=== PATIENT | female | born 1950 | race Caucasian/White ===

== ENCOUNTER 2017-08-14 13:03 | Outpatient (CLI) | payer MEDICARE, BC | END 2017-08-14 13:04 | disposition home or self-care (01) | LOC: ULT 13:03 | PROVIDERS: ATTEND Family Medicine | DX: R01.1 Cardiac murmur, unspecified (principal) | CPT/HCPCS: 93306 ==

== ENCOUNTER 2017-08-15 09:57 | Outpatient (CLI) | payer MEDICARE, BC ==
--- NOTE | 2017-08-15 13:27 | CT ---
CT PULMONARY LUNG SCAN NONCONTRAST: Date: 08-15-17 History: Baseline lung screening. Tobacco abuse x 21 years. FINDINGS: At the right posterior medial lung base, a bilobed noncalcified subpleural nodule includes components that are 0.6 and 0.5 cm greatest diameters. Lungs are otherwise hyperinflated with scattered areas o f mild scarring. No lobar consolidation, pleural fluid, or pneumothorax are visible. Lack of contrast limits evaluation of the mediastinum. There is calcification in the arterial structu res. Within the partially visualized upper abdomen, gas is apparent within the biliary system of the left liver lobe. IMPRESSION: 1. Bilobed noncalcified nodule at the right posterior medial lung base measuring up to 0.6 cm diamete r. Lung rads category 3 - positive. Indeterminate finding. Recommend low dose CT imaging follow up in 3 months to evaluate for stability. 2. COPD. 3. Atherosclerosis. POS: [facility]
== END 2017-08-15 09:58 | disposition home or self-care (01) ==
LOC: CT 09:57
PROVIDERS: ATTEND Family Medicine
DX: F17.210 Nicotine dependence, cigarettes, uncomplicated (principal); J44.9 Chronic obstructive pulmonary disease, unspecified; I70.90 Unspecified atherosclerosis; R91.1 Solitary pulmonary nodule
CPT/HCPCS: G0297

== ENCOUNTER 2017-11-16 09:33 | Emergency (ER) | payer MEDICARE, BC ==
--- NOTE | 2017-11-16 11:48 | ULT ---
LEFT LOWER EXTREMITY VENOUS DOPPLER WITH SPECTRAL ANALYSIS AND COLOR FLOW EVALUATION: 11/16/2017 HISTORY: Left high pain and swelling, with onset this morning, after waking up. Redness to the left lower ext remity. History of varicose veins, left lower extremity. FINDINGS: Galvin-scale, color-flow, Doppler evaluation, and spectral analysis of the left lower extremity venous structures is performed with 2D imaging. The left lower extremity common femoral, superficial femora l, popliteal, posterior tibial, most proximal greater saphenous, and profunda femoral veins are image d. There is normal lumen compressibility, flow, and augmentation in the visualized deep venous structure s of the left lower extremity. There is a dilated tubular structures filled with echogenic material seen within the medial aspect of the lower left thigh, as well as the medial aspect of the left upper calf. Color-flow evaluation do es not demonstrate flow within this structure. This is most compatible with a thrombosed superficial vein in the left lower extremity. The research physicist does note redness in this region. Findings could be related to thrombophlebitis. IMPRESSION: 1. No evidence of a deep venous thrombosis involving the visualized deep venous structures of the le ft lower extremity. 2. Thrombosed superficial vein, left lower extremity, within the medial aspect of the lower left thi gh and the upper calf. There is overlying redness in this region according to the report by the ultr asonographer, and findings may be related to superficial thrombophlebitis. POS: [facility]
== END 2017-11-16 12:08 | disposition home or self-care (01) ==
LOC: SCSER 09:33
DX: I80.02 Phlebitis and thrombophlebitis of superficial vessels of left lower extremity (principal); E03.9 Hypothyroidism, unspecified; F17.210 Nicotine dependence, cigarettes, uncomplicated

== ENCOUNTER 2018-02-15 08:15 | Outpatient (CLI) | payer MEDICARE, BC | END 2018-02-15 08:16 | disposition home or self-care (01) | LOC: BICMAMMO 08:15 | PROVIDERS: ATTEND Family Medicine | DX: Z12.31 Encounter for screening mammogram for malignant neoplasm of breast (principal); R92.1 Mammographic calcification found on diagnostic imaging of breast; Z80.3 Family history of malignant neoplasm of breast | CPT/HCPCS: 77063; 77067 ==

== ENCOUNTER 2018-05-01 07:39 | Outpatient (CLI) | payer MEDICARE, BC ==
--- NOTE | 2018-05-01 09:26 | CT ---
CT OF THE CHEST WITHOUT CONTRAST WITH LOW DOSE CANCER SCREENING PROTOCOL: Comparison: 08-15-17 History: Smoking history. Previously seen nodule in the right lower lobe. Technique: Multiple contiguous axial images were obtained in a CT of the chest without contrast per l ow dose cancer screening protocol. Coronal reformats were performed. FINDINGS: Emphysematous changes are seen in the lungs. There is an area of nodularity in the right lower lobe. This is less prominent than on the prior examination. This no longer demonstrates a bilobed appearanc e. This nodule measures 7 mm in greatest dimension and could represent scarring. No other pulmonary n odules are seen. No pneumothorax or pleural effusions are seen. The heart is normal in size. Calcifications are seen in the coronary arteries and aorta. No hilar or mediastinal lymphadenopathy are appreciated on this noncontrast examination. There is stable air in the biliary tree from gastroenterologic procedure. The other visualized subdia phragmatic structures are unremarkable. Mild degenerative changes are seen in the spine. The chest wa ll soft tissues are unremarkable. IMPRESSION: Decreased sized of right lower lobe pulmonary nodule. This nodule is likely benign. Lung RADS categor y 3. A follow up CT in one year is recommended to ensure continued stability and/or evaluate for reso lution. POS: [facility]
== END 2018-05-01 07:40 | disposition home or self-care (01) ==
LOC: CT 07:39
PROVIDERS: ATTEND Family Medicine
DX: F17.210 Nicotine dependence, cigarettes, uncomplicated (principal); J44.9 Chronic obstructive pulmonary disease, unspecified; R91.8 Other nonspecific abnormal finding of lung field; R91.1 Solitary pulmonary nodule
CPT/HCPCS: G0297

== ENCOUNTER 2018-08-01 13:05 | Outpatient (CLI) | payer MEDICARE, BC ==
--- NOTE | 2018-08-01 15:38 | BD ---
DEXA BONE DENSITY STUDY: Date: 08/01/18 HISTORY: 68-year-old postmenopausal female for screening for osteoporosis. COMPARISON: None. FINDINGS: Femurs: BMD (g/cm2) Left Femoral Neck: 0.731 T-Score: -1.1 Total Proximal Left Femur: 0.915 T-Score: -0.2 Right Femoral Neck: 0.694 T-Score: -1.4 Total Proximal Right Femur: 0.902 T-Score: -0.3 IMPRESSION: Osteopenia. This patient has a 10 year WHO fracture risk of a major osteoporotic fracture of 15% and a hip fracture of 2.8%. POS: [facility]
== END 2018-08-01 13:06 | disposition home or self-care (01) ==
LOC: BICMAMMO 13:05
PROVIDERS: ATTEND Family Medicine
DX: Z13.820 Encounter for screening for osteoporosis (principal); M85.851 Other specified disorders of bone density and structure, right thigh; M85.852 Other specified disorders of bone density and structure, left thigh; Z78.0 Asymptomatic menopausal state
CPT/HCPCS: 77080

== ENCOUNTER 2019-09-03 09:22 | Outpatient (CLI) | payer MEDICARE, BC ==
--- NOTE | 2019-09-03 11:36 | MMO ---
Bilateral MAMMO Bilat Screen [facility]. CLINICAL HISTORY: Patient is 69 years old and is seen for screening. The patient has the following family history of breast cancer: sister, at age 39, malignant (generic). The patient has no personal history of cancer. VIEWS: The views performed were: bilateral craniocaudal with tomosynthesis and bilateral mediolateral oblique with tomosynthesis. FILMS COMPARED: The present examination has been compared to prior imaging studies performed at [facility] on 02/17/2012 and 02/15/2018, and at [facility] on 11/26/2008 and 12/31/2009. This study has been interpreted with the assistance of computer-aided detection. MAMMOGRAM FINDINGS: There are scattered fibroglandular densities. Benign calcifications are noted bilaterally. There are no suspicious masses, suspicious calcifications, or new areas of architectural distortion. IMPRESSION: THERE IS NO MAMMOGRAPHIC EVIDENCE OF MALIGNANCY. A ROUTINE FOLLOW-UP MAMMOGRAM IN 1 YEAR IS RECOMMENDED. THE RESULTS OF THIS EXAM WERE SENT TO THE PATIENT. ACR BI-RADS Category 2 - Benign finding MAMMOGRAPHY NOTE: 1. A negative mammogram report should not delay a biopsy if a dominant of clinically suspicious mass is present. 2. Approximately 10% to 15% of breast cancers are not detected by mammography. 3. Adenosis and dense breasts may obscure an underlying neoplasm. Reported by: MADELEINE RUIZ MD Electonically Signed: [id number]
== END 2019-09-03 09:23 | disposition home or self-care (01) ==
LOC: BICMAMMO 09:22
PROVIDERS: ATTEND Family Medicine
DX: Z12.31 Encounter for screening mammogram for malignant neoplasm of breast (principal); Z80.3 Family history of malignant neoplasm of breast
CPT/HCPCS: 77063; 77067

== ENCOUNTER 2019-10-08 07:31 | Outpatient (CLI) | payer MEDICARE, BC ==
--- NOTE | 2019-10-08 08:59 | CT ---
CT PULMONARY LUNG SCAN: HISTORY: Current smoker with a 30-year history of smoking half a pack a day, still currently smoking but down to only 4 cigarettes a day. COMPARISON: A 05/01/2018 examination. FINDINGS: The lungs show some evidence for air trapping. Slightly mosaic lung pattern is seen. No infiltrativ e process. The right lower lobe pulmonary nodule seen on axial image 187 is stable. It is somewhat oblong in shape measured in 5ransverse dimension and compared to the prior examination a similar kayce urement of approximately 6 mm was obtained. No new nodules. Coronary calcifications are noted. No significant mediastinal adenopathy. Gallbladder has been burton flakita. IMPRESSION: 1. Lung RADS category 2, benign appearance for behavior. Stable appearance of the right lower lobe pulmonary nodule would indicate a low likelihood of malignancy. Annual screening followup is recomm ended. 2. Lung RADS category S. This second category is given for the presence of coronary calcifications. POS: [facility]
== END 2019-10-08 07:32 | disposition home or self-care (01) ==
LOC: CT 07:31
PROVIDERS: ATTEND Family Medicine
DX: Z12.2 Encounter for screening for malignant neoplasm of respiratory organs (principal); F17.210 Nicotine dependence, cigarettes, uncomplicated; R91.1 Solitary pulmonary nodule; I25.10 Atherosclerotic heart disease of native coronary artery without angina pectoris
CPT/HCPCS: G0297

== ENCOUNTER 2020-09-23 09:12 | Outpatient (CLI) | payer MEDICARE, BC ==
--- NOTE | 2020-09-23 10:11 | MMO ---
Bilateral MAMMO Bilat Screen [facility]. CLINICAL HISTORY: Patient is 70 years old and is seen for screening. The patient has the following family history of breast cancer: sister, at age 39, malignant (generic). The patient has no personal history of cancer. VIEWS: The views performed were: bilateral craniocaudal with tomosynthesis and bilateral mediolateral oblique with tomosynthesis. FILMS COMPARED: The present examination has been compared to prior imaging studies performed at [facility] on 02/17/2012, 02/15/2018 and 09/03/2019, and at [facility] on 12/31/2009. This study has been interpreted with the assistance of computer-aided detection. MAMMOGRAM FINDINGS: There are scattered fibroglandular densities. There are benign appearing calcifications seen in both breasts. There are no suspicious masses, suspicious calcifications, or new areas of architectural distortion. IMPRESSION: THERE IS NO MAMMOGRAPHIC EVIDENCE OF MALIGNANCY. A ROUTINE FOLLOW-UP MAMMOGRAM IN 1 YEAR IS RECOMMENDED. THE RESULTS OF THIS EXAM WERE SENT TO THE PATIENT. ACR BI-RADS Category 2 - Benign finding MAMMOGRAPHY NOTE: 1. A negative mammogram report should not delay a biopsy if a dominant of clinically suspicious mass is present. 2. Approximately 10% to 15% of breast cancers are not detected by mammography. 3. Adenosis and dense breasts may obscure an underlying neoplasm. Reported by: MADELEINE RUIZ MD Electonically Signed: [id number]
== END 2020-09-23 09:13 | disposition home or self-care (01) ==
LOC: BICMAMMO 09:12
PROVIDERS: ATTEND Family Medicine
DX: Z12.31 Encounter for screening mammogram for malignant neoplasm of breast (principal); Z80.3 Family history of malignant neoplasm of breast
CPT/HCPCS: 77063; 77067

== ENCOUNTER 2021-02-02 13:29 | Outpatient (CLI) | payer MEDICARE, BC | END 2021-02-02 13:30 | disposition home or self-care (01) | LOC: BICCT 13:29 | PROVIDERS: ATTEND Family Medicine | DX: Z12.2 Encounter for screening for malignant neoplasm of respiratory organs (principal); F17.210 Nicotine dependence, cigarettes, uncomplicated; J44.9 Chronic obstructive pulmonary disease, unspecified; R91.1 Solitary pulmonary nodule; E04.9 Nontoxic goiter, unspecified; I25.10 Atherosclerotic heart disease of native coronary artery without angina pectoris | CPT/HCPCS: 71271 ==

== ENCOUNTER 2021-10-21 13:56 | Inpatient (IN) | payer MEDICARE, BC ==
[~2021-10-21 13:56] MED LIST: Iopamidol-370 76% 500 ML 1 ML ONE
[2021-10-21 14:36] LABS: Hemoglobin 15.5 g/dL (12.0-16.0); Mean Corpuscular HGB CONC 33.9 g/dL (32.0-36.0); Mean Corpuscular Hemoglobin 32.6 pg (27.0-31.0); Mean Corpuscular Volume 96.2 fL (78.0-98.0); Mean Platelet Volume 8.9 fL (7.4-10.4); Platelet Count 184 thou/uL (130-400); RBC Distribution Width 12.7 % (11.5-14.5); Red Blood Cell (RBC) Count 4.75 mill/uL (4.20-5.40); White Blood Cell (WBC) Count 16.8 thou/uL (4.8-10.8)
[2021-10-21 14:51] LABS: ALT (SGPT) 182 U/L (8-55); AST (SGOT) 257 U/L (5-34); Albumin 3.9 g/dL (3.4-4.8); Alkaline Phosphatase 394 U/L (40-110); Anion Gap 12 mmol/L (10-20); BUN (Urea Nitrogen) 9 mg/dL (9.8-20.1); Bilirubin, Total 3.8 mg/dL (0.2-1.2); Calc. Creatinine Clearance 0 mL/min (70-130); Calcium 9.2 mg/dL (7.8-10.44); Carbon Dioxide 26 mmol/L (23-31); Chloride 101 mmol/L (98-107); Globulin 3.5 g/dL (2.4-3.5); Glucose 165 mg/dL (83-110); Lipase 14 U/L (8-78); Protein, Total 7.4 g/dL (5.8-8.1); Sodium 135 mmol/L (136-145)
[2021-10-21 14:53] LABS: Band 20 % (5-11); Lymphocytes 3 % (21-51); MDiff Complete? YES; Monocytes 1 % (0-10); Neutrophil 76 % (42-75); Platelet Morphology Comment Appears Adequate; Polychromasia SLIGHT = 2-3 cells (100X) (0-2/hpf)
[2021-10-21] MEDS ORDERED: Morphine 4 MG/ML VIAL ONE (15:01)
[2021-10-21] MEDS ORDERED: Ondansetron PF 4 MG/2 ML Vial ONE (15:01)
[2021-10-21] MEDS ORDERED: Ondansetron PF 4 MG/2 ML Vial IVP SCH (15:15)
[2021-10-21] MEDS ORDERED: Morphine 4 MG/ML VIAL SLOW IVP SCH (15:15)
[2021-10-21] MEDS ORDERED: Piperacillin/Tazobactam 3.375 GM VIAL ONE (15:48)
[2021-10-21 16:23] LABS: Bilirubin Negative (Negative); Blood, Urine Negative (Negative); Clarity Clear (Clear); Glucose, Urine (Dipstick) Normal (Negative); Ketone, Urine Negative (Negative); Leukocyte Negative Leu/uL (Negative); Nitrite Negative (Negative); Protein, Urine (Dipstick) Negative (Neg-Trace)
[2021-10-21 16:24] LABS: Specific Gravity, Urine 1.053 (1.002-1.036)
[2021-10-21] MEDS ORDERED: Acetaminophen 500 MG TAB ONE (16:56)
[2021-10-21] MEDS ORDERED: Ondansetron PF 4 MG/2 ML Vial IVP PRN (17:15)
[2021-10-21] MEDS ORDERED: Acetaminophen 325 MG TAB PO PRN (17:15)
[2021-10-21] MEDS ORDERED: Ondansetron ODT 4 MG TAB SL PRN (17:15)
[2021-10-21] MEDS ORDERED: hydrALAZINE 20 MG/ML VIAL SLOW IVP PRN (18:51)
[2021-10-21] MEDS: Sodium Chloride 0.9% 1,000 ML IV SCH (20:41)
[2021-10-21] MEDS: Piperacillin/Tazobactam 3.375 GM in Sodium Chloride 0.9% 100 ML IVPB SCH (20:42)
[2021-10-21] MEDS: Morphine 4 MG/ML VIAL SLOW IVP PRN (20:43)
[2021-10-21 20:53] VITALS: BMI 28.2
[2021-10-21] MEDS ORDERED: Nicotine 14 MG PATCH TD PRN (23:29)
[2021-10-22 00:53] LABS: SARS-CoV-2 NAA Rapid Test Not Detected (NotDetected)
[2021-10-22] MEDS: Piperacillin/Tazobactam 3.375 GM in Sodium Chloride 0.9% 100 ML IVPB SCH ×3 (04:23→19:56)
[2021-10-22] MEDS: Sodium Chloride 0.9% 1,000 ML IV SCH (05:46)
[2021-10-22] MEDS: Morphine 4 MG/ML VIAL SLOW IVP PRN ×3 (05:47→19:55)
[2021-10-22] MEDS ORDERED: Indomethacin 50 MG SUPP ONE (06:42)
[2021-10-22] MEDS ORDERED: Iothalamate Meglumine 60% 50 ML VIAL FS ONE ×2 (06:46→10:40)
[2021-10-22] MEDS ORDERED: Midazolam HCl 2 mg/2 ml Vial ONE (09:47)
[2021-10-22] MEDS ORDERED: Fentanyl 250 MCG/5 ML VIAL ONE (09:48)
[2021-10-22] MEDS ORDERED: GLYCOPYRROLATE/PF 0.2 MG/ML VIAL ONE (10:00)
[2021-10-22] MEDS ORDERED: Lidocaine 1% PF 5 ML VIAL ONE (10:00)
[2021-10-22] MEDS ORDERED: Rocuronium Bromide 10 MG/ML (10ML VIAL) ONE (10:00)
[2021-10-22] MEDS ORDERED: Ondansetron PF 4 MG/2 ML Vial ONE (10:00)
[2021-10-22] MEDS ORDERED: Dexamethasone 20 MG/5 ML VIAL ONE (10:00)
[2021-10-22] MEDS ORDERED: PROPOFOL 200 MG/20 ML VIAL ONE (10:00)
[2021-10-22] MEDS ORDERED: Ondansetron HCl/PF 4 MG/2 ML Vial IVP PRN (11:28)
[2021-10-22] MEDS ORDERED: Promethazine HCl 25 MG/ML VIAL IVPB PRN (11:28)
[2021-10-22] MEDS ORDERED: Promethazine HCl 25 MG/ML VIAL IM PRN (11:28)
[2021-10-23] MEDS: Morphine 4 MG/ML VIAL SLOW IVP PRN ×6 (00:01→21:05)
[2021-10-23] MEDS: Piperacillin/Tazobactam 3.375 GM in Sodium Chloride 0.9% 100 ML IVPB SCH ×3 (04:02→20:53)
[2021-10-23 04:57] LABS: #Monocytes 0.4 thou/uL (0.11-0.59); #Neutrophils 10.7 thou/uL (1.40-6.50); %Basophils 0.2 % (0.0-1.0); %Eosinophils 0.1 % (0.0-10.0); %Lymphocytes 8.5 % (21.0-51.0); %Monocytes 3.5 % (0.0-10.0); %Neutrophils 87.8 % (42.0-75.0); Hemoglobin 13.6 g/dL (12.0-16.0); Mean Corpuscular HGB CONC 31.9 g/dL (32.0-36.0); Mean Corpuscular Hemoglobin 31.8 pg (27.0-31.0); Mean Corpuscular Volume 99.5 fL (78.0-98.0); Mean Platelet Volume 9.6 fL (7.4-10.4); Platelet Count 170 thou/uL (130-400); RBC Distribution Width 12.8 % (11.5-14.5); Red Blood Cell (RBC) Count 4.28 mill/uL (4.20-5.40); White Blood Cell (WBC) Count 12.2 thou/uL (4.8-10.8)
[2021-10-23 05:16] LABS: ALT (SGPT) 94 U/L (8-55); AST (SGOT) 48 U/L (5-34); Albumin 3.7 g/dL (3.4-4.8); Alkaline Phosphatase 252 U/L (40-110); Bilirubin, Direct 1.8 mg/dL (0.1-0.3); Bilirubin, Total 2.5 mg/dL (0.2-1.2); Protein, Total 6.9 g/dL (5.8-8.1)
[2021-10-23 05:18] LABS: ALT (SGPT) 93 U/L (8-55); AST (SGOT) 49 U/L (5-34); Albumin 3.7 g/dL (3.4-4.8); Alkaline Phosphatase 252 U/L (40-110); Anion Gap 13 mmol/L (10-20); BUN (Urea Nitrogen) 17 mg/dL (9.8-20.1); Bilirubin, Total 2.6 mg/dL (0.2-1.2); Calc. Creatinine Clearance 75 mL/min (70-130); Calcium 9.2 mg/dL (7.8-10.44); Carbon Dioxide 25 mmol/L (23-31); Chloride 105 mmol/L (98-107); Globulin 3.2 g/dL (2.4-3.5); Glucose 144 mg/dL (83-110); Potassium 4.4 mmol/L (3.5-5.1); Protein, Total 6.9 g/dL (5.8-8.1); Sodium 139 mmol/L (136-145)
[2021-10-23] MEDS: Methimazole 5 MG TAB PO SCH (05:55)
[2021-10-23] MEDS ORDERED: Methimazole 5 MG TAB PO SCH (09:00)
[2021-10-23] MEDS: Ursodiol 300 MG CAP PO SCH (16:48)
[2021-10-24] MEDS: Temazepam 15 MG CAP PO SCH (00:07)
[2021-10-24 05:13] LABS: #Basophils 0.1 thou/uL (0.0-0.2); #Eosinphils 0.2 thou/uL (0.0-0.7); #Lymphocytes 2.5 thou/uL (1.20-3.40); #Monocytes 0.5 thou/uL (0.11-0.59); #Neutrophils 5.8 thou/uL (1.40-6.50); %Basophils 0.6 % (0.0-1.0); %Eosinophils 2.5 % (0.0-10.0); %Lymphocytes 27.6 % (21.0-51.0); %Monocytes 5.7 % (0.0-10.0); %Neutrophils 63.6 % (42.0-75.0); Hemoglobin 12.5 g/dL (12.0-16.0); Mean Corpuscular HGB CONC 32.1 g/dL (32.0-36.0); Mean Corpuscular Hemoglobin 31.9 pg (27.0-31.0); Mean Corpuscular Volume 99.5 fL (78.0-98.0); Mean Platelet Volume 9.4 fL (7.4-10.4); Platelet Count 174 thou/uL (130-400); RBC Distribution Width 12.8 % (11.5-14.5); Red Blood Cell (RBC) Count 3.92 mill/uL (4.20-5.40); White Blood Cell (WBC) Count 9.2 thou/uL (4.8-10.8)
[2021-10-24] MEDS: Methimazole 5 MG TAB PO SCH (05:28)
[2021-10-24] MEDS: Piperacillin/Tazobactam 3.375 GM in Sodium Chloride 0.9% 100 ML IVPB SCH ×3 (05:28→20:37)
[2021-10-24 05:31] LABS: ALT (SGPT) 65 U/L (8-55); AST (SGOT) 34 U/L (5-34); Albumin 3.3 g/dL (3.4-4.8); Alkaline Phosphatase 206 U/L (40-110); Anion Gap 12 mmol/L (10-20); BUN (Urea Nitrogen) 11 mg/dL (9.8-20.1); Bilirubin, Total 1.8 mg/dL (0.2-1.2); Calc. Creatinine Clearance 84 mL/min (70-130); Calcium 8.9 mg/dL (7.8-10.44); Carbon Dioxide 28 mmol/L (23-31); Chloride 109 mmol/L (98-107); Globulin 2.9 g/dL (2.4-3.5); Glucose 97 mg/dL (83-110); Potassium 5.2 mmol/L (3.5-5.1); Protein, Total 6.2 g/dL (5.8-8.1); Sodium 144 mmol/L (136-145)
[2021-10-24 08:11] LABS: Potassium 4.7 mmol/L (3.5-5.1)
[2021-10-24] MEDS: Ursodiol 300 MG CAP PO SCH ×3 (08:16→16:37)
[2021-10-24] MEDS: Atenolol 50 MG TAB PO SCH (08:17)
[2021-10-24] MEDS: Morphine 4 MG/ML VIAL SLOW IVP PRN ×4 (08:20→22:25)
[2021-10-25] MEDS: Temazepam 15 MG CAP PO SCH ×2 (00:47→20:26)
[2021-10-25] MEDS: Piperacillin/Tazobactam 3.375 GM in Sodium Chloride 0.9% 100 ML IVPB SCH ×3 (04:46→20:27)
[2021-10-25] MEDS: Methimazole 5 MG TAB PO SCH (04:46)
[2021-10-25 05:05] LABS: #Basophils 0.1 thou/uL (0.0-0.2); #Eosinphils 0.3 thou/uL (0.0-0.7); #Lymphocytes 2.7 thou/uL (1.20-3.40); #Monocytes 0.6 thou/uL (0.11-0.59); #Neutrophils 3.6 thou/uL (1.40-6.50); %Basophils 0.8 % (0.0-1.0); %Eosinophils 3.6 % (0.0-10.0); %Lymphocytes 37.3 % (21.0-51.0); %Monocytes 8.1 % (0.0-10.0); %Neutrophils 50.2 % (42.0-75.0); Hemoglobin 13.4 g/dL (12.0-16.0); Mean Corpuscular HGB CONC 30.8 g/dL (32.0-36.0); Mean Corpuscular Hemoglobin 30.6 pg (27.0-31.0); Mean Corpuscular Volume 99.5 fL (78.0-98.0); Mean Platelet Volume 9.5 fL (7.4-10.4); Platelet Count 191 thou/uL (130-400); RBC Distribution Width 12.6 % (11.5-14.5); Red Blood Cell (RBC) Count 4.38 mill/uL (4.20-5.40); White Blood Cell (WBC) Count 7.1 thou/uL (4.8-10.8)
[2021-10-25 05:28] LABS: ALT (SGPT) 59 U/L (8-55); AST (SGOT) 31 U/L (5-34); Albumin 3.3 g/dL (3.4-4.8); Alkaline Phosphatase 205 U/L (40-110); Anion Gap 11 mmol/L (10-20); BUN (Urea Nitrogen) 7 mg/dL (9.8-20.1); Bilirubin, Total 2.2 mg/dL (0.2-1.2); Calc. Creatinine Clearance 85 mL/min (70-130); Calcium 8.8 mg/dL (7.8-10.44); Carbon Dioxide 28 mmol/L (23-31); Chloride 105 mmol/L (98-107); Globulin 3.1 g/dL (2.4-3.5); Glucose 87 mg/dL (83-110); Potassium 4.4 mmol/L (3.5-5.1); Protein, Total 6.4 g/dL (5.8-8.1); Sodium 140 mmol/L (136-145)
[2021-10-25] MEDS: Ursodiol 300 MG CAP PO SCH ×3 (08:39→18:34)
[2021-10-25] MEDS: Atenolol 50 MG TAB PO SCH (08:40)
[2021-10-25] MEDS ORDERED: Amlodipine 5 MG TAB PO SCH ×2 (09:30)
[2021-10-25] MEDS: Acetaminophen/Codeine 30-300mg Tablet PO PRN ×2 (16:26→20:25)
[2021-10-26] MEDS: Piperacillin/Tazobactam 3.375 GM in Sodium Chloride 0.9% 100 ML IVPB SCH ×2 (04:49→12:00)
[2021-10-26] MEDS: Methimazole 5 MG TAB PO SCH (05:45)
[2021-10-26] MEDS: Atenolol 50 MG TAB PO SCH (08:55)
[2021-10-26] MEDS: Ursodiol 300 MG CAP PO SCH ×2 (08:58→12:00)
[2021-10-26 08:59] VITALS: BP 159/65; TEMP 98.7
[2021-10-26] MEDS ORDERED: Amlodipine 5 MG TAB PO SCH (09:00)
[2021-10-26] MEDS: Acetaminophen/Codeine 30-300mg Tablet PO PRN (10:16)
== END 2021-10-26 16:20 | disposition home or self-care (01) | DRG 872 ==
LOC: ERS 13:56 → 2NO 17:13 → MSONC 10-22 19:01 → OBSVTOIN 10-23 10:03
PROVIDERS: ADMIT Internal Medicine; ATTEND Internal Medicine
PROC: 0FC98ZZ Extirpation of Matter from Common Bile Duct, Via Natural or Artificial Opening Endoscopic (ICD-10-PCS; principal; 2021-10-22)
PROC: 0F798ZZ Dilation of Common Bile Duct, Via Natural or Artificial Opening Endoscopic (ICD-10-PCS; 2021-10-22)
PROC: 3E03329 Introduction of Other Anti-infective into Peripheral Vein, Percutaneous Approach (ICD-10-PCS; 2021-10-22)
DX: A41.9 Sepsis, unspecified organism (principal); K80.32 Calculus of bile duct with acute cholangitis without obstruction; E87.1 Hypo-osmolality and hyponatremia; Z20.822 Contact with and (suspected) exposure to COVID-19; I10 Essential (primary) hypertension; F17.210 Nicotine dependence, cigarettes, uncomplicated; E05.00 Thyrotoxicosis with diffuse goiter without thyrotoxic crisis or storm; K25.7 Chronic gastric ulcer without hemorrhage or perforation; Z79.899 Other long term (current) drug therapy; Z90.49 Acquired absence of other specified parts of digestive tract; Z98.890 Other specified postprocedural states; Z88.6 Allergy status to analgesic agent
CPT/HCPCS: 36415; 74177; 74330; 80053; 81003; 83605; 83690; 84443; 84484; 85025; 87040; 87077; 87149; 87186; 93005; 96366; 96376; G0378; J1100; J1610; J2250; J2270; J2405; J2543; J2704; J3010; J3490; J7050; Q9961-U8; Q9967; U0002; U0003; U0005

== ENCOUNTER 2021-12-03 10:26 | Outpatient (CLI) | payer MEDICARE, BC | END 2021-12-03 10:27 | disposition home or self-care (01) | LOC: BICRAD 10:26 | PROVIDERS: ATTEND Family Medicine | DX: M25.511 Pain in right shoulder (principal); M19.011 Primary osteoarthritis, right shoulder ==

== ENCOUNTER 2024-06-20 10:36 | Outpatient (CLI) | payer MEDICARE | END 2024-06-20 10:37 | disposition home or self-care (01) | LOC: MRI 10:36 | PROVIDERS: ATTEND Family Medicine Sports Medicine | DX: M25.462 Effusion, left knee (principal); M23.92 Unspecified internal derangement of left knee; M65.862 Other synovitis and tenosynovitis, left lower leg ==